=== PATIENT | male | born 1935 | race Two or more races ===

== ENCOUNTER 2020-03-06 21:25 | Inpatient (IN) | payer MEDICARE, OTHER ==
[2020-03-06] VITALS: BP 128/89
[~2020-03-06] VITALS: Ht 188 cm; Wt 80.7 kg
[~2020-03-06 21:25] MED LIST: ACETAMINOPHEN 650 MG/20.3 ML UDC GT PRN
[2020-03-06] MEDS ORDERED: IV NS 0.9% 1,000 ML BAG IV ONE ×2 (21:30→23:00)
--- NOTE | 2020-03-06 21:30 | NUR ---
LUDA FROM HOME FOR C/O GENERALIZED BODY PAIN, WEAKNESS AND FEVER . PT A, OX3, WAS TRANSFERRED TO BED 7, ON MONITOR, TACHY CARDIA NOTED. PER PT HE WAS JUST DISCHARGED FROM [facility]. DENIED ANY PAIN OR DISCOMFORT AT THIS TIME. WILL CONT TO MONITOR.
--- NOTE | 2020-03-06 21:39 | NUR ---
EMT AT BEDSIDE FOR EKG
[2020-03-06] MEDS ORDERED: CEFTRIAXONE 1GM BAG (ER ONLY) 50 ML IV ONE ×2 (21:41→22:00)
[2020-03-06] MEDS ORDERED: DILTIAZEM HCL 50 MG IV IV ONE (22:00)
[2020-03-06 22:04] LABS: HEMATOCRIT 30 % (39-51); HEMOGLOBIN 9.9 g/dL (13.5-17.5); LYMPHOCYTES # (AUTO) 4.4 /CMM (0.8-4.8); LYMPHOCYTES % (AUTO) 26.5 % (20.0-44.0); MEAN CORPUSCULAR HGB CONC 33 g/dl (31.0-36.0); MEAN CORPUSCULAR VOLUME 92 fL (80-96); MONOCYTES % (AUTO) 11.9 % (2.0-12.0); NEUTROPHILS # (AUTO) 10.3 /CMM (1.8-8.9); NEUTROPHILS % (AUTO) 61.6 % (43.0-81.0); PLATELET COUNT (AUTO) 241 /CMM (150-450); RED BLOOD CELL COUNT(AUTO) 3.23 MIL/uL (4.5-6.0); WHITE BLOOD COUNT (AUTO) 16.7 K/uL (4.3-11.0)
[2020-03-06] MEDS ORDERED: DILTIAZEM HCL 25 MG IV ONE (22:06)
--- NOTE | 2020-03-06 22:13 | NUR ---
Crow kyle in ED - 03/06/20 at 2217 by ERIK BROUGHT BY RADIOLOGY TO CT
--- NOTE | 2020-03-06 22:14 | NUR ---
PT WAS PICKED UP FOR CT
--- NOTE | 2020-03-06 22:17 | NUR ---
SANYA () CONTACT INFORMATION: [phone]
--- NOTE | 2020-03-06 22:26 | NUR ---
BACK FROM CT
[2020-03-06 22:28] LABS: ALANINE AMINOTRANSFERASE 16 U/L (12-78); ALBUMIN 2.5 g/dL (3.4-5.0); ALKALINE PHOSPHATASE 63 U/L (46-116); ASPARTATE AMINOTRANSFERASE 27 U/L (15-37); BILIRUBIN,DIRECT 0.5 mg/dL (0.0-0.2); BILIRUBIN,TOTAL 1.3 mg/dL (0.2-1.0); CALCIUM, SERUM 7.5 mg/dL (8.5-10.1); CARBON DIOXIDE 26 mmol/L (21-32); CHLORIDE 101 mmol/L (98-107); CREATININE 1.7 mg/dL (0.6-1.3); GLUCOSE 116 mg/dL (74-106); POTASSIUM 3.7 mmol/L (3.5-5.1); SODIUM SERUM 132 mmol/L (136-145); TOTAL PROTEIN, SERUM 7.2 g/dL (6.4-8.2); UREA NITROGEN, BLOOD 24 mg/dL (7-18)
[2020-03-06] MEDS ORDERED: DILTIAZEM HCL 25 MG IV IV ONE (22:30)
[2020-03-06] MEDS ORDERED: DILTIAZEM HCL 30 MG TABLET PO ONE (22:30)
[2020-03-06] MEDS ORDERED: DILTIAZEM HCL 30 MG TABLET ONE (22:34)
--- NOTE | 2020-03-06 22:38 | NUR ---
REC'D NEG COVID RESULTS
--- NOTE | 2020-03-06 22:45 | NUR ---
asked pt for urine sample. unable to provide. refused cath. will f/u
--- NOTE | 2020-03-06 22:49 | NUR ---
called [place] for CT read
[2020-03-06] MEDS ORDERED: ACETAMINOPHEN 650 MG/SUPP.RECT RC PRN (23:00)
[2020-03-06] MEDS ORDERED: LEVOFLOXACIN 750 MG /D5W 150ML PIGGYBACK IV ONE (23:00)
[2020-03-06] MEDS ORDERED: LEVOFLOXACIN 750 MG /D5W 150ML 150 ML IV ONE (23:03)
[2020-03-06] MEDS ORDERED: FINA5TAB11 PO (23:30)
[2020-03-06] MEDS ORDERED: ASPI-1169 PO (23:30)
[2020-03-06] MEDS ORDERED: ONDANSETRON HCL/PF 4 MG/2 ML VIAL IVP PRN (23:30)
[2020-03-06] MEDS ORDERED: ROSU5TAB PO (23:30)
[2020-03-06] MEDS ORDERED: ALFU10TA10 PO (23:30)
[2020-03-06] MEDS ORDERED: NEBI10TA2 PO (23:30)
[2020-03-06] MEDS ORDERED: ALBUTEROL FS 2.5 MG/3 ML VIAL.NEB NEB PRN (23:45)
[2020-03-06] MEDS ORDERED: PIPERACILLIN /TAZOBACTAM 3.375 G VIAL IV ONE (23:51)
[2020-03-07] VITALS: BP 128/89
--- NOTE | 2020-03-07 00:07 | NUR ---
pt was transferred to 206 under ACLS. report given to Gabbie in advance
--- NOTE | 2020-03-07 00:13 | NUR ---
MATTRESS MAKERALLERGY SPECIALIST NOTES PATIENT TRANSFERRED FROM ER VIA ACLS PROTOCOL IN STABLE CONDITION. A/OX4. UNABLE TO AMBULATE AT THIS TIME D/T WEAKNESS. STABLE ON RA. PATIENT DENIES SOB OR PAIN AT THIS TIME; BREATHING IS EVEN AND UNLABORED. TELE MONITOR READING SINUS RHYTHM, HEART RATE 85. IV PRESENT ON LEFT AC, SIZE 18, INTACT & PATENT WITH LEVAQUIN RUNNING AT 100 ML/HR. IV PRESENT ON LEFT HAND SIZE 18, INTACT & PATENT, HEP LOCKED. SACRAL REDNESS NOTED UPON SKIN ASSESSMENT; PHOTO TAKEN AND PLACED IN CHART. BELONGINGS REVIEWED; PATIENT WEARING RING ON LEFT HAND. MED RECONCILIATION AND MRSA SWAB COMPLETED IN ER. ADMITTING ORDERS RECEIVED FROM DRUGLESS PHYSICIAN PRODUCTION MACHINE TENDER, RAJWINDER VELAZQUEZ. CONTACT/DROPLET PRECAUTIONS IN PLACE FOR R/O COVID 19. SAFETY MEASURES IN PLACE AND PATIENT'S NEEDS MET. BED LOCKED, HOB ELEVATED, SIDE RAILS X2, CALL LIGHT WITHIN REACH. WILL CONTINUE TO MONITOR.
[2020-03-07] MEDS: IV NS 0.9% 1,000 ML IV PRN ×2 (00:51→17:17)
[2020-03-07] MEDS: PIPERACILLIN /TAZOBACTAM 3.375 G in IV D5W 50 ML IV SCH ×4 (00:51→17:12)
[2020-03-07 01:38] VITALS: BP 128/89
[2020-03-07 04:00] VITALS: BP 111/66
[2020-03-07] MEDS ORDERED: PIPERACILLIN /TAZOBACTAM 3.375 G VIAL IV ONE (05:24)
[2020-03-07 05:25] VITALS: BP 111/66
[2020-03-07 06:42] LABS: BASOPHILS % (AUTO) 0.1 % (0.0-2.0); HEMATOCRIT 24 % (39-51); HEMOGLOBIN 8.2 g/dL (13.5-17.5); LYMPHOCYTES % (AUTO) 36.9 % (20.0-44.0); MEAN CORPUSCULAR HGB CONC 34 g/dl (31.0-36.0); MEAN CORPUSCULAR VOLUME 92 fL (80-96); MONOCYTES # (AUTO) 1.9 /CMM (0.1-1.30); MONOCYTES % (AUTO) 14.2 % (2.0-12.0); NEUTROPHILS # (AUTO) 6.7 /CMM (1.8-8.9); NEUTROPHILS % (AUTO) 48.8 % (43.0-81.0); PLATELET COUNT (AUTO) 192 /CMM (150-450); RED BLOOD CELL COUNT(AUTO) 2.65 MIL/uL (4.5-6.0); WHITE BLOOD COUNT (AUTO) 13.6 K/uL (4.3-11.0)
--- NOTE | 2020-03-07 06:43 | NUR ---
SENIOR POWER SCHEDULER CLOSING NOTES PATIENT AWAKE IN BED. A/OX4. STABLE ON RA; NO S/S OF ACUTE RESPIRATORY DISTRESS; BREATHING IS EVEN AND UNLABORED. NO C/O PAIN. TELE MONITOR READING SINUS RHYTHM WITH PAC, HEART RATE 81. IV PRESENT ON LEFT HAND, SIZE 18, INTACT & PATENT WITH NS RUNNING AT 90 ML/HR. IV PRESENT ON LEFT AC, SIZE 18, INTACT & PATENT, HEP LOCKED. SAFETY MEASURES IN PLACE AND PATIENT'S NEEDS MET. BED LOCKED, ALARM ON, SEMI-FOWLERS POSITION, SIDE RAILS X2, CALL LIGHT WITHIN REACH. WILL ENDORSE TO DAY SHIFT RN PLAN OF CARE.
[2020-03-07 07:04] LABS: ALANINE AMINOTRANSFERASE 16 U/L (12-78); ALKALINE PHOSPHATASE 48 U/L (46-116); ASPARTATE AMINOTRANSFERASE 27 U/L (15-37); CALCIUM, SERUM 7.1 mg/dL (8.5-10.1); CARBON DIOXIDE 23 mmol/L (21-32); CHLORIDE 105 mmol/L (98-107); CREATININE 1.4 mg/dL (0.6-1.3); GLUCOSE 120 mg/dL (74-106); POTASSIUM 3.7 mmol/L (3.5-5.1); SODIUM SERUM 137 mmol/L (136-145); TOTAL PROTEIN, SERUM 5.9 g/dL (6.4-8.2); UREA NITROGEN, BLOOD 21 mg/dL (7-18)
[2020-03-07 07:07] LABS: C-REACTIVE PROTEIN 4.7 mg/dL (0.0-0.9)
[2020-03-07 07:26] LABS: BILIRUBIN,URINE NEGATIVE (NEGATIVE); BLOOD, URINE LARGE Ery/uL (NEGATIVE); COLOR,URINE YELLOW (YELLOW); LEUKOCYTE ESTERASE ,URINE NEGATIVE (NEGATIVE); NITRITE, URINE NEGATIVE (NEGATIVE); PROTEIN,URINE TRACE mg/dl (NEGATIVE); UGLUCOSE NEGATIVE (NEGATIVE); UROBILINOGEN,URINE 0.2 EU/dL (0.2)
--- NOTE | 2020-03-07 07:30 | NUR ---
ms rn received on bed, awake,alert,oriented x4,not in any form of distress,respiration even and unlabored,no sob noted, lungs are diminish,abdomen soft,positive bowel sounds,denies pain at this time,all needs attended.
[2020-03-07 08:11] VITALS: BP 118/76
[2020-03-07] MEDS: ASPIRIN 81 MG TAB.CHEW PO SCH (08:33)
[2020-03-07] MEDS: FINASTERIDE (5 MG) 5 MG TABLET PO SCH (08:33)
[2020-03-07] MEDS: APIXABAN 2.5 MG TABLET PO SCH ×2 (08:34→17:13)
--- NOTE | 2020-03-07 08:40 | NUR ---
ms gamboa breakfast served,due meds given,tolerated well.
[2020-03-07 08:50] LABS: BAND % (MANUAL) 3 % (0.0-5.0); LYMPHOCYTES % (MANUAL) 28 % (16-48); MONOCYTES % (MANUAL) 4 % (0-11.0); NEUTROPHILS % (MANUAL) 63 (42-76)
[2020-03-07 08:55] LABS: MYELOCYTES % 2 % (0-0)
[2020-03-07] MEDS ORDERED: Alfuzosin Hcl 10 MG PO SCH (09:00)
[2020-03-07 09:21] LABS: BACTERIA,URINE Rare /HPF (None Seen); SQUAMOUS EPITHELIAL CELL,UR Rare /HPF (None Seen); URIC ACID CRYSTALS,URINE Many /HPF (None Seen); WBC,URINE 0-2 /HPF (0-3)
[2020-03-07 09:24] LABS: MAGNESIUM 1.8 mg/dL (1.8-2.4); PHOSPHORUS 3.1 mg/dL (2.5-4.9)
--- NOTE | 2020-03-07 11:30 | NUR ---
ms cooper was seen by mitchel hall, w/ orders made and carried out.
[2020-03-07 11:52] LABS: FERRITIN 835 ng/mL (8-388)
[2020-03-07 12:41] LABS: CHOLESTEROL 48 mg/dL (<200); LDL 22 mg/dL (0-99); TRIGLYCERIDES 117 mg/dL (30-150)
[2020-03-07 12:44] LABS: HDL CHOLESTEROL < 10 mg/dL (40-60)
[2020-03-07] MEDS: METOPROLOL TARTRATE 50 MG TABLET PO SCH ×2 (12:51→17:12)
--- NOTE | 2020-03-07 17:53 | NUR ---
ms rn on bed.all needs attended.
--- NOTE | 2020-03-07 18:10 | NUR ---
ms cooper covid pcr-negative, called Chloe,patient will be transferred to [facility], cooper Kay will take patient.
--- NOTE | 2020-03-07 19:04 | NUR ---
ms cooper bae pcr specimen sent to lab. Addendum: 03/07/20 at 1905 by DANK STAPLETON RN wrong patient.
--- NOTE | 2020-03-07 20:48 | NUR ---
BUSINESS AND MARKETING TEACHER NOTES RECEIVED REPORT FROM MICHAEL COX FOR FLY.
--- NOTE | 2020-03-07 20:49 | NUR ---
PRODUCTION CLERKS SUPERVISOR OPEN NOTES RECEIVED PT FROM MS2. PT IS LAYING IN BED. A/O X4. ON RA, NO SOB/ ACUTE RESPIRATORY DISTRESS NOTED. IV IN L HAND #18G IS PATENT AND INTACT RUNNING NS @ 90MLS/HR. PT DENIES ANY PAIN AT THE MOMENT. PT ORIENTED TO ROOM. BED IS IN LOWEST LOCKED POSITION WITH SIDE RAILS UP X3, SEMI FOWLERS. BED ALARM ON. CALL LIGHT IS WITHIN REACH. WILL CONTINUE TO MONITOR.
--- NOTE | 2020-03-07 20:50 | NUR ---
REPORTING DEVELOPER NOTES RECEIVED CALL FROM LAB STATING PT HAS GRAM + COCCI CLUSTERS IN BLOOD. WILL NOTIFY MD AND CONTINUE TO MONITOR PT.
--- NOTE | 2020-03-07 20:51 | NUR ---
Patient was transferred to room 325-1, reports given to MICHAEL Lopez for continuity of care. Patient is A/O x4. No s/s of distress noted. Stable. No complain of pain. For urine collection, strain urine, endorsed.
--- NOTE | 2020-03-07 21:12 | NUR ---
ONION TIER NOTES REGARDING GRAM + COCCI IN PT'S BLOOD, ORDERED VANCOMYCIN PHARMACY TO DOSE. ORDER NOTED AND CARRIED OUT.
[2020-03-07] MEDS: ATORVASTATIN 10 MG TABLET PO SCH (21:39)
[2020-03-07] MEDS ORDERED: VANCOMYCIN 1.25 GM in IV D5W 250 ML IV ONE (23:30)
[2020-03-07] MEDS ORDERED: VANCOMYCIN 1 GM in IV D5W 250ml IV ONE (23:45)
--- NOTE | 2020-03-07 23:51 | NUR ---
BAKERY TECHNICIAN NOTES PHARMACY ADJUSTED VANCOMYCIN DOSE TO 1.25GM. 3W DOES NOT HAVE THIS DOSAGE AVAILABLE THEREFORE I CONTACTED RAJWINDER TO SEE IF WE CAN CHANGE THE CURRENT DOSE TO 1 GM IN WHICH SHE REPLIED TO CONTACT PHARMACY.
--- NOTE | 2020-03-07 23:57 | NUR ---
INDUSTRIAL HYGIENE MANAGER NOTES PHARMACY CHANGED VANCOMYCIN DOSAGE TO 1GM FOR NOW, THEN PHARMACY TO DOSE VANCOMYCIN TOMORROW IN THE AM. MD GORDON
[2020-03-08] VITALS: BP 116/70
[2020-03-08] MEDS ORDERED: VANCOMYCIN 1 GM VIAL ONE (00:09)
[2020-03-08] MEDS: METOPROLOL TARTRATE 50 MG TABLET PO SCH ×4 (00:12→17:51)
[2020-03-08] MEDS: PIPERACILLIN /TAZOBACTAM 3.375 G in IV D5W 50 ML IV SCH ×4 (00:51→17:46)
[2020-03-08 04:00] VITALS: BP 120/67
--- NOTE | 2020-03-08 06:45 | NUR ---
ECONOMICS ANALYST NOTES URINE COLLECTED FOR URINE CULTURE. WAS ALSO ABLE TO STRAIN URINE FOR KIDNEY STONES- SMALL AMOUNT OF STONES PRESENT.
[2020-03-08 06:56] LABS: BASOPHILS # (AUTO) 0.5 /CMM (0.0-0.2); BASOPHILS % (AUTO) 3.1 % (0.0-2.0); EOSINOPHILS % (AUTO) 0.1 % (0.0-6.0); HEMATOCRIT 26 % (39-51); HEMOGLOBIN 8.9 g/dL (13.5-17.5); LYMPHOCYTES # (AUTO) 8.6 /CMM (0.8-4.8); MEAN CORPUSCULAR HGB CONC 34 g/dl (31.0-36.0); MEAN CORPUSCULAR VOLUME 91 fL (80-96); MONOCYTES # (AUTO) 0.5 /CMM (0.1-1.30); MONOCYTES % (AUTO) 3.2 % (2.0-12.0); NEUTROPHILS # (AUTO) 6.9 /CMM (1.8-8.9); NEUTROPHILS % (AUTO) 41.6 % (43.0-81.0); PLATELET COUNT (AUTO) 170 /CMM (150-450); RED BLOOD CELL COUNT(AUTO) 2.89 MIL/uL (4.5-6.0); WHITE BLOOD COUNT (AUTO) 16.6 K/uL (4.3-11.0)
--- NOTE | 2020-03-08 06:57 | NUR ---
POST OFFICE MARKUP CLERK CLOSE NOTES PATIENT IS LAYING IN BED. A/O X4. STABLE ON RA, NO SOB/ ACUTE RESPIRATORY DISTRESS NOTED. TELE MONITOR READING A FIB, 110. IVS IN L AC #18G AND L HAND #18G ARE BOTH PATENT AND INTACT, ABLE TO FLUSH EASILY. NS RUNNING @ 90MLS/HR. ALL DUE ANTIBIOTICS GIVEN. PT DENIES ANY PAIN AT THE MOMENT. BED IS IN LOWEST LOCKED POSITION WITH SIDE RAILS UP X3, SEMI FOWLERS. BED ALARM ON. CALL LIGHT IS WITHIN REACH. WILL ENDORSE TO AM NURSE.
[2020-03-08 07:41] LABS: ALANINE AMINOTRANSFERASE 21 U/L (12-78); ALKALINE PHOSPHATASE 45 U/L (46-116); ASPARTATE AMINOTRANSFERASE 28 U/L (15-37); BILIRUBIN,TOTAL 1.1 mg/dL (0.2-1.0); CALCIUM, SERUM 7.2 mg/dL (8.5-10.1); CARBON DIOXIDE 21 mmol/L (21-32); CHLORIDE 104 mmol/L (98-107); CREATININE 1.5 mg/dL (0.6-1.3); GLUCOSE 118 mg/dL (74-106); MAGNESIUM 1.9 mg/dL (1.8-2.4); PHOSPHORUS 3.2 mg/dL (2.5-4.9); POTASSIUM 3.6 mmol/L (3.5-5.1); SODIUM SERUM 136 mmol/L (136-145); TOTAL PROTEIN, SERUM 5.9 g/dL (6.4-8.2); UREA NITROGEN, BLOOD 21 mg/dL (7-18)
[2020-03-08 07:49] LABS: CREATINE KINASE, TOTAL 297 U/L (39-308)
--- NOTE | 2020-03-08 07:57 | NUR ---
RESCUE INSTRUCTOR NOTE PATIENT IN BED RESTING COMFORTABLY. PATIENT IN NO ACUTE DISTRESS. NO SOB NOTED. PATIENT BREATHING IS EVEN AND UNLABORED. PATIENT STATES NO PAIN AT THIS TIME. PATIENT BED ALARM IS ON. SAFETY PRECAUTIONS IN PLACE. PATIENT ON CARDIAC MONITORING READING AFIB HR 105. PATIENT BED IS LOCKED AND IN LOWEST POSITION. CALL LIGHT WITHIN REACH. WILL CONTINUE TO MONITOR.
[2020-03-08 08:00] VITALS: BP 118/70
[2020-03-08] MEDS: APIXABAN 2.5 MG TABLET PO SCH ×2 (08:39→17:51)
[2020-03-08] MEDS: ASPIRIN 81 MG TAB.CHEW PO SCH (08:39)
[2020-03-08] MEDS: FINASTERIDE (5 MG) 5 MG TABLET PO SCH (08:39)
[2020-03-08 16:00] VITALS: BP 118/82
[2020-03-08] MEDS: ENSURE ENLIVE CHOC 237 ML CAN PO SCH (17:46)
[2020-03-08] MEDS ORDERED: VANCOMYCIN 1 GM in IV D5W 250 ML IV SCH (18:00)
--- NOTE | 2020-03-08 18:56 | NUR ---
GEAR MILLING MACHINE SET UP OPERATOR NOTE PATIENT IN BED RESTING COMFORTABLY. PATIENT IN NO ACUTE DISTRESS. NO SOB NOTED. PATIENT BREATHING IS EVEN AND UNLABORED. PATIENT STATES NO PAIN AT THIS TIME. EXPLAINED ALL DUE MEDS. PATIENT KEPT CLEAN, DRY, AND COMFORTABLE THROUGHOUT MY SHIFT. PATIENT BED ALARM IS ON. SAFETY PRECAUTIONS IN PLACE. PATIENT ON CARDIAC MONITORING READING AFIB HR 100. PATIENT BED IS LOCKED AND IN LOWEST POSITION. CALL LIGHT WITHIN REACH. WILL ENDORSE CARE TO PM SHIFT FOR FLY.
[2020-03-08] MEDS ORDERED: BISACODYL (5 MG) 5 MG TABLET.DR PO PRN (19:00)
[2020-03-08 20:14] VITALS: BP 98/69
[2020-03-08] MEDS: DOCUSATE SODIUM 100 MG CAPSULE PO SCH (21:31)
[2020-03-08] MEDS: ATORVASTATIN 10 MG TABLET PO SCH (21:32)
[2020-03-08] MEDS: TAMSULOSIN 0.4 MG CAP.SR.24H PO SCH (21:32)
[2020-03-09] MEDS: PIPERACILLIN /TAZOBACTAM 3.375 G in IV D5W 50 ML IV SCH ×5 (00:05→23:14)
[2020-03-09] MEDS: METOPROLOL TARTRATE 50 MG TABLET PO SCH ×5 (00:22→23:13)
[2020-03-09 00:23] VITALS: BP 118/67
[2020-03-09 05:04] VITALS: BP 128/66
[2020-03-09] MEDS: IV NS 0.9% 1,000 ML IV PRN (06:30)
--- NOTE | 2020-03-09 07:25 | NUR ---
RN OPENING NOTE THE PATIENT IS RECEIVED IN BED. PATIENT IS ALERT AND ORIENTED X4. IN ROOM AIR AND DENIES SOB. RESPIRATION REGULAR AND UNLABORED. DENIES PAIN. THE PATIENT IS IN NO APPARENT DISTRESS. LAC G 18 PATENT AND NS INFUSING AT 90ML/HR. NO S/S INFILTRATION NOTED. TELE BOX READING IS SR 78 WITH PAC. BED LOW AND LOCKED. SIDE RAILS UP X3. CALL LIGHT WITHIN REACH. WILL CONTINUE TO MONITOR.
[2020-03-09 07:42] LABS: CALCIUM, SERUM 7.1 mg/dL (8.5-10.1); CARBON DIOXIDE 24 mmol/L (21-32); CHLORIDE 105 mmol/L (98-107); CREATININE 1.4 mg/dL (0.6-1.3); GLUCOSE 110 mg/dL (74-106); POTASSIUM 3.7 mmol/L (3.5-5.1); SODIUM SERUM 137 mmol/L (136-145); UREA NITROGEN, BLOOD 22 mg/dL (7-18)
[2020-03-09 08:08] LABS: PTH, INTACT 38 pg/mL (15-65)
[2020-03-09] MEDS: ENSURE ENLIVE CHOC 237 ML CAN PO SCH ×2 (08:32→18:05)
[2020-03-09] MEDS: FINASTERIDE (5 MG) 5 MG TABLET PO SCH (08:33)
[2020-03-09] MEDS: ASPIRIN 81 MG TAB.CHEW PO SCH (08:33)
[2020-03-09] MEDS: DOCUSATE SODIUM 100 MG CAPSULE PO SCH ×2 (08:33→18:05)
[2020-03-09] MEDS: APIXABAN 2.5 MG TABLET PO SCH ×2 (08:39→18:07)
[2020-03-09 08:42] VITALS: BP 139/73
[2020-03-09 09:00] LABS: FERRITIN 673 ng/mL (8-388)
[2020-03-09 09:02] LABS: IRON, SERUM 39 ug/dl (50-175); TOTAL IRON BINDING CAPACITY 120 ug/dl (250-450)
[2020-03-09 09:45] LABS: BASOPHILS # (AUTO) 0.2 /CMM (0.0-0.2); BASOPHILS % (AUTO) 1.2 % (0.0-2.0); EOSINOPHILS % (AUTO) 0.5 % (0.0-6.0); HEMATOCRIT 27 % (39-51); LYMPHOCYTES # (AUTO) 7.9 /CMM (0.8-4.8); LYMPHOCYTES % (AUTO) 54.4 % (20.0-44.0); MEAN CORPUSCULAR HGB CONC 33 g/dl (31.0-36.0); MEAN CORPUSCULAR VOLUME 93 fL (80-96); MONOCYTES # (AUTO) 0.4 /CMM (0.1-1.30); MONOCYTES % (AUTO) 2.4 % (2.0-12.0); NEUTROPHILS # (AUTO) 6.1 /CMM (1.8-8.9); NEUTROPHILS % (AUTO) 41.5 % (43.0-81.0); PLATELET COUNT (AUTO) 159 /CMM (150-450); RED BLOOD CELL COUNT(AUTO) 2.93 MIL/uL (4.5-6.0); WHITE BLOOD COUNT (AUTO) 14.6 K/uL (4.3-11.0)
[2020-03-09] MEDS ORDERED: SORBITOL SOLUTION 30 ML PO ONE (10:00)
[2020-03-09] MEDS ORDERED: LACTULOSE 10 G/15 ML UDC (PYXIS) PO ONE (10:00)
[2020-03-09 13:08] LABS: *SPE A/G RATIO 0.6 (0.7-1.7); *SPE ALBUMIN 2.2 g/dL (2.9-4.4); *SPE ALPHA-1-GLOBULIN 0.2 g/dL (0.0-0.4); *SPE ALPHA-2-GLOBULIN 0.6 g/dL (0.4-1.0); *SPE BETA GLOBULIN 0.7 g/dL (0.7-1.3); *SPE GLOBULIN, TOTAL 3.5 g/dL (2.2-3.9); *SPE M-SPIKE Not Observed g/dL (Not Observed)
--- NOTE | 2020-03-09 13:17 | NUR ---
MICHAEL NOTE VANCOMYCIN 1 GM DUE AT 1200 IS ADMINISTERED AT LATE BECAUSE VANCO TROUGH LEVEL LAB POSTED AT 1318. Addendum: 03/09/20 at 1324 by EDWARD WELLINGTON RN MICHAEL NOTE WAITING FOR THE PHARMACY TO DELIVER VANCOMYCIN. FOLLOW UP CALL IS MADE.
--- NOTE | 2020-03-09 13:39 | NUR ---
RN CT ON HOLD AT THIS TIME PATIENT REQUESTED MORE TIME TO DECIDED ABOUT AGREEING TO HAVE CT OF THE CHEST. YAO MAJOR IS MADE AWARE AND AGREED WITH PATIENT`S REQUEST. RADIOLOGY DEPARTMENT IS MADE AWARE.
[2020-03-09] MEDS ORDERED: VANCOMYCIN 0.75 GM in IV D5W 250 ML IV SCH (14:00)
[2020-03-09 15:20] LABS: D-DIMER 5.74 mg/L(FEU (0.17-0.50)
[2020-03-09 16:00] VITALS: BP 119/75
[2020-03-09 18:16] LABS: PROSTATE SPECIFIC ANTIGEN SCR 2.19 ng/mL (0.00-4.00)
--- NOTE | 2020-03-09 18:18 | NUR ---
RN CLOSING NOTE THE PATIENT ALERT AND ORIENTED X4. IN ROOM AIR AND OXYGEN SATURATION LEVEL IS AT 95%. DENIES SOB. RESPIRATION REGULAR AND UNLABORED. DENIES PAIN. LAC G 18 PATENT AND ZOSYN INFUSING PER ORDER AND NO S/S INFILTRATION NOTED. BED LOW AND LOCKED. SIDE RAILS UP X3. CALL LIGHT WITHIN REACH. WILL ENDORSE TO PREPARATION PLANT SUPERVISOR.
[2020-03-09] MEDS ORDERED: BISACODYL (5 MG) 5 MG TABLET.DR PO PRN (18:30)
[2020-03-09] MEDS: POLYETHYLENE GLYCOL 3350 17 GM POWD.PACK PO SCH (18:51)
--- NOTE | 2020-03-09 19:06 | NUR ---
RN STRAIN URINE URINE STRAINED PER ORDER. WILL ENDORSE TO LOCATION MANAGER.
[2020-03-09 20:00] VITALS: BP 128/77
--- NOTE | 2020-03-09 20:00 | NUR ---
RN NOTES RECEIVED PATIENT IN BED, ALERT AND ORIENTED X4, ON ROOM AIR, NO COMPLAIN OF PAIN, STRAINING URINE, NO STONES. KEPT SAFE, CALL LIGHT WITHIN REACH.
[2020-03-09] MEDS: TAMSULOSIN 0.4 MG CAP.SR.24H PO SCH (21:08)
[2020-03-09] MEDS: ATORVASTATIN 10 MG TABLET PO SCH (21:08)
[2020-03-09 22:00] VITALS: BP 128/77
[2020-03-10 05:12] VITALS: BP 124/71
[2020-03-10] MEDS: PIPERACILLIN /TAZOBACTAM 3.375 G in IV D5W 50 ML IV SCH (05:12)
[2020-03-10] MEDS: METOPROLOL TARTRATE 50 MG TABLET PO SCH ×3 (05:16→17:13)
--- NOTE | 2020-03-10 06:19 | NUR ---
RN NOTES ALERT AND ORIENTED X4, ROOM AIR, NO COMPLAIN OF PAIN, VOIDING VIA URINAL, STRAINING URINE, NO STONES, CONTINUE ZOSYN, IV HYDRATION, US OF SCROTUM, TEST FOR TUMOR MARKER AND ONCOLOGY CONSULT
[2020-03-10 06:43] LABS: BASOPHILS # (AUTO) 0.1 /CMM (0.0-0.2); BASOPHILS % (AUTO) 0.9 % (0.0-2.0); EOSINOPHILS % (AUTO) 0.7 % (0.0-6.0); HEMATOCRIT 25 % (39-51); HEMOGLOBIN 8.4 g/dL (13.5-17.5); LYMPHOCYTES # (AUTO) 6.6 /CMM (0.8-4.8); LYMPHOCYTES % (AUTO) 47.1 % (20.0-44.0); MEAN CORPUSCULAR HGB CONC 33 g/dl (31.0-36.0); MEAN CORPUSCULAR VOLUME 93 fL (80-96); MONOCYTES # (AUTO) 1.1 /CMM (0.1-1.30); MONOCYTES % (AUTO) 7.8 % (2.0-12.0); NEUTROPHILS # (AUTO) 6.1 /CMM (1.8-8.9); NEUTROPHILS % (AUTO) 43.5 % (43.0-81.0); PLATELET COUNT (AUTO) 159 /CMM (150-450); RED BLOOD CELL COUNT(AUTO) 2.74 MIL/uL (4.5-6.0)
[2020-03-10 06:54] LABS: CREATININE 1.3 mg/dL (0.6-1.3); MAGNESIUM 1.9 mg/dL (1.8-2.4); POTASSIUM 3.2 mmol/L (3.5-5.1)
--- NOTE | 2020-03-10 07:32 | NUR ---
RN MS OPENING NOTES RECEIVED PATIENT RESTING IN BED, AWAKE, ALERT AND ORIENTED X4, ON ROOM AIR; NO S/S OR C/O OF SOB, BREATHING EVEN AND UNLABORED. NO C/O PAIN. IV TO RT FA #20G, PATENT AND INTACT, FLUSHING WELL WITH NO SIGNS OF REDNESS OR SWELLING NOTED; INFUSING NS @90 ML/HR. BED IS AT LOWEST POSITION AND LOCKED WITH SIDE RAILS UPX2 AND CALL LIGHT WITHIN REACH. WILL CONTINUE TO MONITOR PATIENT THROUGH SHIFT.
[2020-03-10 08:00] VITALS: BP 105/72
[2020-03-10 08:06] LABS: IMMUNOGLOBULIN A, SERUM 256 mg/dL (61-437); IMMUNOGLOBULIN G, SERUM 1875 mg/dL (603-1613); IMMUNOGLOBULIN M, SERUM 60 mg/dL (15-143)
[2020-03-10] MEDS: ENSURE ENLIVE CHOC 237 ML CAN PO SCH ×2 (08:11→16:40)
[2020-03-10] MEDS: FINASTERIDE (5 MG) 5 MG TABLET PO SCH (09:06)
[2020-03-10] MEDS: DOCUSATE SODIUM 100 MG CAPSULE PO SCH ×2 (09:06→16:32)
[2020-03-10] MEDS: ASPIRIN 81 MG TAB.CHEW PO SCH (09:06)
[2020-03-10] MEDS: POLYETHYLENE GLYCOL 3350 17 GM POWD.PACK PO SCH (09:06)
[2020-03-10] MEDS: APIXABAN 2.5 MG TABLET PO SCH ×2 (09:07→16:33)
[2020-03-10] MEDS: POTASSIUM CHLORIDE 20 MEQ TAB.PRT.SR PO SCH ×2 (11:04→12:06)
[2020-03-10] MEDS: IV NS 0.9% 1,000 ML IV PRN (11:37)
[2020-03-10 16:00] VITALS: BP 139/88
--- NOTE | 2020-03-10 18:19 | NUR ---
RN MS CLOSING NOTES PATIENT RESTING IN BED, A/OX4, ON ROOM AIR WITH NO S/S OR C/O OF SOB, PATIENT BREATHING EVEN AND UNLABORED. NO C/O PAIN. IV TO RT FA #20G IS PATENT AND INTACT WITH NO SIGNS OF INFILTRATION NOTED, INFUSING NS @90 ML/HR. BED IS AT LOWEST POSITION AND LOCKED WITH SIDE RAILS UPX2 AND CALL LIGHT WITHIN REACH. RELEASE OF RECORDS FOR CT OF ABD DONE AT [facility] FAXED PER DR. THOMPSON'S REQUEST. WILL ENDORSE TO ONCOMING SHIFT.
--- NOTE | 2020-03-10 19:30 | NUR ---
MS/TELE/RN RECEIVED PATIENT IN BED AWAKE, ALERT, ORIENTED, COMFORTABLE, NO C/O PAIN, NO DISTRESS NOTED, CALL LIGHT IN REACH, WILL MONITOR.
[2020-03-10 20:00] VITALS: BP 128/76
[2020-03-10] MEDS: ATORVASTATIN 10 MG TABLET PO SCH (22:34)
[2020-03-10] MEDS: TAMSULOSIN 0.4 MG CAP.SR.24H PO SCH (22:34)
[2020-03-11] MEDS: METOPROLOL TARTRATE 50 MG TABLET PO SCH ×5 (00:25→23:12)
--- NOTE | 2020-03-11 02:48 | NUR ---
MS/TELE/RN PATIENT IS SLEEPING AT THIS TIME, APPEAR COMFORTABLE, NO SIGNS OF DISTRESS NOTED, CALL LIGHT IN REACH. WILL CONTINUE TO MONITOR.
[2020-03-11] MEDS: IV NS 0.9% 1,000 ML IV PRN (05:10)
--- NOTE | 2020-03-11 06:21 | NUR ---
MS/TELE/RN PATIENT IS AWAKE AT THIS TIME, COMFORTABLE, NO C/O PAIN, NO DISTRESS NOTED, CALL LIGHT IN REACH, ALL NEEDS ATTENDED AT THIS TIME, WILL CONTINUE TO MONITOR.
[2020-03-11 07:14] LABS: CALCIUM, SERUM 7.5 mg/dL (8.5-10.1); CREATININE 1.1 mg/dL (0.6-1.3); POTASSIUM 3.7 mmol/L (3.5-5.1)
--- NOTE | 2020-03-11 07:38 | NUR ---
RN MS OPENING NOTES RECEIVED PATIENT RESTING IN BED, AWAKE, A/0X4, ON ROOM AIR; NO S/S OF SOB, BREATHING EVEN AND UNLABORED. NO C/O PAIN. IV TO RT FA #20G, PATENT AND INTACT, FLUSHING WELL WITH NO SIGNS OF REDNESS OR SWELLING, INFUSING NS @90 ML/HR. BED IS AT LOWEST POSITION AND LOCKED WITH SIDE RAILS UPX2 AND CALL LIGHT WITHIN REACH. WILL CONTINUE TO MONITOR PATIENT THROUGH SHIFT.
[2020-03-11 08:00] VITALS: BP 102/60
[2020-03-11] MEDS: ENSURE ENLIVE CHOC 237 ML CAN PO SCH ×2 (08:03→16:19)
[2020-03-11 08:17] LABS: D-DIMER 5.5 mg/L(FEU (0.17-0.50)
[2020-03-11] MEDS: ASPIRIN 81 MG TAB.CHEW PO SCH (08:57)
[2020-03-11] MEDS: FINASTERIDE (5 MG) 5 MG TABLET PO SCH (08:58)
[2020-03-11] MEDS: POLYETHYLENE GLYCOL 3350 17 GM POWD.PACK PO SCH (08:58)
[2020-03-11] MEDS: DOCUSATE SODIUM 100 MG CAPSULE PO SCH ×2 (08:58→16:19)
[2020-03-11] MEDS: APIXABAN 2.5 MG TABLET PO SCH ×2 (08:59→16:20)
[2020-03-11 16:00] VITALS: BP 119/74
--- NOTE | 2020-03-11 18:46 | NUR ---
RN MS CLOSING NOTES PATIENT RESTING IN BED, A/OX4, ON ROOM AIR WITH NO S/S OR C/O OF SOB, BREATHING EVEN AND UNLABORED. NO C/O PAIN. IV TO RT FA #20G IS PATENT AND INTACT WITH NO SIGNS OF INFILTRATION NOTED KEPT SL. BED IS AT LOWEST POSITION AND LOCKED WITH SIDE RAILS UPX2 AND CALL LIGHT WITHIN REACH. WILL ENDORSE TO ONCOMING SHIFT.
--- NOTE | 2020-03-11 19:40 | NUR ---
MS RN OPENING NOTES PATIENT AWAKE IN BED. A/OX4. STABLE ON RA; PATIENT DENIES SOB; BREATHING IS EVEN AND UNLABORED. NO C/O PAIN. IV PRESENT ON RIGHT FA, SIZE 20, INTACT & PATENT, HEP LOCKED. SAFETY MEASURES IN PLACE AND PATIENT'S NEEDS MET. BED LOCKED, HOB ELEVATED, SIDE RAILS X2, CALL LIGHT WITHIN REACH. WILL CONTINUE TO MONITOR.
[2020-03-11 20:40] VITALS: BP 120/77
[2020-03-11] MEDS: TAMSULOSIN 0.4 MG CAP.SR.24H PO SCH (21:28)
[2020-03-11] MEDS: ATORVASTATIN 10 MG TABLET PO SCH (21:29)
[2020-03-12] MEDS: METOPROLOL TARTRATE 50 MG TABLET PO SCH ×2 (05:26→12:36)
--- NOTE | 2020-03-12 07:03 | NUR ---
MS RN CLOSING NOTES PATIENT SLEEPING, AWAKENS TO NAME. A/OX4. STABLE ON RA; NO S/S OF ACUTE RESPIRATORY DISTRESS. NO S/S OF PAIN NOTED. IV PRESENT ON RIGHT FA, SIZE 20, INTACT & PATENT, HEP LOCKED. SAFETY MEASURES IN PLACE AND PATIENT'S NEEDS MET. BED LOCKED, HOB ELEVATED, SIDE RAILS X2, CALL LIGHT WITHIN REACH. ENDORSED TO DAY SHIFT RN PLAN OF CARE.
[2020-03-12 07:07] LABS: BASOPHILS # (AUTO) 0.1 /CMM (0.0-0.2); EOSINOPHILS % (AUTO) 1.9 % (0.0-6.0); HEMATOCRIT 26 % (39-51); HEMOGLOBIN 8.6 g/dL (13.5-17.5); LYMPHOCYTES # (AUTO) 3.7 /CMM (0.8-4.8); MEAN CORPUSCULAR HGB CONC 33 g/dl (31.0-36.0); MEAN CORPUSCULAR VOLUME 94 fL (80-96); NEUTROPHILS # (AUTO) 7.8 /CMM (1.8-8.9); NEUTROPHILS % (AUTO) 60.1 % (43.0-81.0); PLATELET COUNT (AUTO) 181 /CMM (150-450); RED BLOOD CELL COUNT(AUTO) 2.77 MIL/uL (4.5-6.0); WHITE BLOOD COUNT (AUTO) 12.9 K/uL (4.3-11.0)
[2020-03-12 07:26] LABS: CALCIUM, SERUM 7.4 mg/dL (8.5-10.1); CREATININE 1.1 mg/dL (0.6-1.3); MAGNESIUM 1.9 mg/dL (1.8-2.4); PHOSPHORUS 2.5 mg/dL (2.5-4.9); POTASSIUM 3.9 mmol/L (3.5-5.1)
--- NOTE | 2020-03-12 07:41 | NUR ---
MS MICHAEL OPEN NOTES PATIENT CURRENTLY IN BED SLEEPING WITH NO SIGNS OF DISTRESS IN ROOM AIR. NO COMPLAIN OF PAIN AT THIS MOMENT. IV R FA# 20 G SL. SAFETY MEASURES ARE APPLIED. BED IS IN LOWEST LOCKED POSITION WITH SIDE RAILS UP X 2 FOR SAFETY. CALL LIGHT IS WITHIN REACH. WILL CONTINUE TO MONITOR.
[2020-03-12 08:00] VITALS: BP 153/81
[2020-03-12] MEDS: FINASTERIDE (5 MG) 5 MG TABLET PO SCH (08:13)
[2020-03-12] MEDS: DOCUSATE SODIUM 100 MG CAPSULE PO SCH (08:13)
[2020-03-12] MEDS: ASPIRIN 81 MG TAB.CHEW PO SCH (08:13)
[2020-03-12] MEDS: POLYETHYLENE GLYCOL 3350 17 GM POWD.PACK PO SCH (08:13)
[2020-03-12] MEDS: APIXABAN 2.5 MG TABLET PO SCH (08:15)
[2020-03-12] MEDS: ENSURE ENLIVE CHOC 237 ML CAN PO SCH (08:25)
[2020-03-12] MEDS ORDERED: NYSTATIN CREAM 15 GM TUBE TP SCH (10:30)
[2020-03-12] MEDS ORDERED: APIX2.5T PO (11:36)
[2020-03-12] MEDS ORDERED: TAMS-12 PO (11:36)
[2020-03-12] MEDS ORDERED: METO50TA16 PO (11:36)
[2020-03-12 12:36] VITALS: BP 153/81
--- NOTE | 2020-03-12 16:03 | NUR ---
DISCHARGE NOTES PATIENT VITALS ARE WITHIN NORMAL LIMIT BP 139/61 P 76 RR 18 TEMP 98.8F SPO2 97% IN RA WITH NO SIGNS OF DISTRESS. NO COMPLAIN OF PAIN AND REMAINED AFEBRILE. DISCHARGE INSTRUCTIONS WERE VERBALLY GIVEN TO THE PATIENT AND PATIENT VERBALLY REPEATED UNDERSTANDING. BELONGING LIST WAS COMPLETED AND SIGNED. IV WAS REMOVED WITH NO SIGNS OF BLEEDING AND COVERED. PATIENT WENT TO [facility] VIA WHEELCHAIR ACCOMPANIED BY JUANJOSE ALLAN.
== END 2020-03-12 15:50 | disposition home or self-care (01) | DRG 871 ==
LOC: ER 21:26 → EDBD 21:26 → TELE2 23:11 → TELE 03-07 21:36 → MED 03-09 08:12
PROVIDERS: ADMIT Nurse Practitioner Acute Care; ATTEND Nurse Practitioner Acute Care
DX: A41.9 Sepsis, unspecified organism (principal); I21.A1 Myocardial infarction type 2; N17.0 Acute kidney failure with tubular necrosis; E44.0 Moderate protein-calorie malnutrition; E87.1 Hypo-osmolality and hyponatremia; N39.0 Urinary tract infection, site not specified; E87.2 Acidosis; M62.82 Rhabdomyolysis; J98.11 Atelectasis; D68.9 Coagulation defect, unspecified; I10 Essential (primary) hypertension; I48.91 Unspecified atrial fibrillation; Z87.440 Personal history of urinary (tract) infections; Z87.442 Personal history of urinary calculi; K57.30 Diverticulosis of large intestine without perforation or abscess without bleeding; R65.20 Severe sepsis without septic shock; Z68.22 Body mass index [BMI] 22.0-22.9, adult; E86.0 Dehydration; D64.9 Anemia, unspecified; E78.5 Hyperlipidemia, unspecified; E87.6 Hypokalemia; I48.0 Paroxysmal atrial fibrillation; N43.3 Hydrocele, unspecified; Z88.2 Allergy status to sulfonamides; E88.09 Other disorders of plasma-protein metabolism, not elsewhere classified; R53.1 Weakness; K80.20 Calculus of gallbladder without cholecystitis without obstruction; N45.1 Epididymitis; K56.41 Fecal impaction; N40.1 Benign prostatic hyperplasia with lower urinary tract symptoms; R59.1 Generalized enlarged lymph nodes; D72.820 Lymphocytosis (symptomatic); N20.0 Calculus of kidney; Z80.0 Family history of malignant neoplasm of digestive organs
CPT/HCPCS: 36415; 71045-TC; 71250-TC; 74018; 76870-TC; 80048-TC; 80053-TC; 80061-TC; 80076-TC; 80202-TC; 81001; 82105; 82378; 82550-TC; 82553; 82728-TC; 82784; 83540-TC; 83605-TC; 83615-TC; 83735-TC; 83970; 84100-TC; 84153-TC; 84154-TC; 84155; 84165; 84439-TC; 84443-TC; 84484-TC; 84702-TC; 85025-TC; 85378-TC; 85396; 85730-TC; 86140-TC; 86334; 87040-TC; 87081-TC; 87086-TC; 93307-TC; 97112-TC; 97116-TC; 97530-TC; C9803; G0378; J0696; J1956; J2543; J3370; J3490; J7030; J7040; J7060; U0003